=== PATIENT | male | born 1945 | race Caucasian/White ===

== ENCOUNTER 2018-04-04 08:21 | Emergency (ER) | payer MEDICARE, OTHER ==
[~2018-04-04] VITALS: Ht 195.6 cm; Wt 120.5 kg
[2018-04-04] MEDS ORDERED: LABETALOL HCL300 M1 PO (08:41)
[2018-04-04] MEDS ORDERED: NORVASC 10MG10 MG PO (08:42)
[2018-04-04] MEDS ORDERED: PRINIVIL10 M1 PO (08:42)
[2018-04-04] MEDS ORDERED: LEXAPRO 10MG10 MG PO (08:42)
[2018-04-04] MEDS ORDERED: ASPIR LOW81 MG PO (08:43)
[2018-04-04] MEDS ORDERED: ATORVASTATIN CA20 MG PO (08:43)
[2018-04-04] MEDS ORDERED: ALPRAZOLAM0.25 MG PO (08:43)
[2018-04-04] MEDS ORDERED: FISH OIL 1,2001 EACH PO (08:44)
[2018-04-04] MEDS ORDERED: ZYRTEC ALLERGY10 MG PO (08:45)
[2018-04-04] MEDS ORDERED: CO Q-10400 MG PO (08:45)
[2018-04-04] MEDS ORDERED: TYLENOL PM EX-1 EACH PO (08:46)
[2018-04-04 09:32] LABS: EOS # 0.1 (0.04-0.40); EOS % 2.2 % (0.0-4.0); HEMATOCRIT 38.3 % (42.0-52.0); HEMOGLOBIN 12.6 g/dL (13.5-18.0); LYMPH# 0.8 (1.50-4.00); MEAN CELL VOLUME 92 fl (78-100); MEAN CORPUSCULAR HEMOGLOBIN 30 pg (27-31); MEAN CORPUSCULAR HGB CONC 33 g/dL (33-37); MEAN PLATELET VOLUME 9.2 fl (7.4-10.4); MONO # 0.5 (0.20-0.80); PLATELET COUNT 233 K/mm3 (130-400); RED BLOOD COUNT 4.15 M/mm3 (4.20-5.60); RED CELL DISTRIBUTION WIDTH 13.4 % (11.5-14.5); WHITE BLOOD COUNT 4.6 K/mm3 (4.8-10.8)
[2018-04-04 09:45] LABS: ALBUMIN 4.1 g/dL (3.5-5.0); CALCIUM 8.7 mg/dL (8.4-10.2); TOTAL BILIRUBIN 0.6 mg/dL (0.2-1.3); TOTAL PROTEIN 6.9 g/dL (6.3-8.2)
[2018-04-04 10:25] LABS: PH-URINE 5.5 (5.0 - 8.0); URINE APPEARANCE CLEAR; URINE BILIRUBIN NEGATIVE (NEGATIVE); URINE BLOOD NEGATIVE (NEGATIVE); URINE COLOR YELLOW; URINE GLUCOSE NEGATIVE (NEGATIVE); URINE KETONE NEGATIVE (NEGATIVE); URINE LEUKOCYTE ESTERASE NEGATIVE (NEGATIVE); URINE NITRATE NEGATIVE (NEGATIVE); URINE PROTEIN(semi-quant) NEGATIVE (NEGATIVE); URINE UROBILINOGEN NORMAL (NORMAL); URINE WBC 0-1 /hpf (0-3)
[2018-04-04 11:45] VITALS: BP 129/80
== END 2018-04-04 11:45 | disposition home or self-care (01) ==
LOC: ED 08:21
PROVIDERS: Family Medicine
DX: I95.1 Orthostatic hypotension (principal); R00.1 Bradycardia, unspecified; I44.0 Atrioventricular block, first degree; Z79.82 Long term (current) use of aspirin; Z79.899 Other long term (current) drug therapy